=== PATIENT | female | born 1995 | race Caucasian/White ===

== ENCOUNTER → 2017-09-01 | Outpatient (CLI) | payer OTHER ==
[2017-09-01 17:56] LABS: BASO % 0.3 % (0.0-1.0); EOS # 0.1 10^3/uL (0.0-0.50); EOS % 0.7 % (0.0-3.0); HEMATOCRIT 40.7 % (36.0-47.0); HEMOGLOBIN 13.3 g/dl (12.0-16.0); IMMATURE GRANULOCYTE % 0.3 % (0-3.0); LYMPH # 3.1 10^3/uL (1.5-6.5); LYMPH % 40.9 % (24.0-44.0); MEAN CORPUSCULAR HEMOGLOBIN 29.3 pg (27.0-33.0); MEAN CORPUSCULAR HGB CONC 32.7 g/dl (32.0-36.5); MEAN CORPUSCULAR VOLUME 89.6 fl (80.0-96.0); MONO # 0.3 10^3/uL (0.0-0.8); MONO % 4.5 % (0.0-5.0); NEUTROPHILS % 53.3 % (36.0-66.0); PLATELET COUNT, AUTOMATED 261 10^3/uL (150-450); RED BLOOD COUNT 4.54 10^6/uL (4.00-5.40); RED CELL DISTRIBUTION WIDTH 13.1 % (11.5-14.5); WHITE BLOOD COUNT 7.5 10^3/uL (4.0-10.0)
[2017-09-01 17:57] LABS: INR 0.98; PROTHROMBIN TIME 13.1 SECONDS (12.4-14.5)
[2017-09-01 17:58] LABS: PARTIAL THROMBOPLASTIN TIME 36.5 SECONDS (26.8-37.9)
== END ==
LOC: M WUC 15:34
DX: R04.0 Epistaxis (principal); G93.2 Benign intracranial hypertension

== ENCOUNTER → 2017-10-10 | Outpatient (CLI) | payer OTHER | LOC: M PAIN 12:30 | DX: Z53.8 Procedure and treatment not carried out for other reasons (principal) ==

== ENCOUNTER 2018-04-23 13:17 | Emergency (ER) | payer OTHER ==
[2018-04-23] MEDS: diphenhydrAMINE INJ 50MG/ML VIAL (J1200) IV (15:42)
[2018-04-23] MEDS: NS 1,000 ML IV (15:42)
[2018-04-23] MEDS: METOCLOPRAMIDE INJ 10MG/2ML VIAL (J2765) IV (15:42)
[2018-04-23] MEDS: KETOROLAC 30 MG/ML VIAL (J1885) IV (15:43)
== END 2018-04-23 17:14 | disposition home or self-care (01) ==
LOC: M ED 13:17
DX: G97.1 Other reaction to spinal and lumbar puncture (principal); F41.9 Anxiety disorder, unspecified; Z79.899 Other long term (current) drug therapy
CPT/HCPCS: J1200

== ENCOUNTER → 2019-09-23 | Outpatient (CLI) | payer OTHER, MEDICAID ==
[~2019-09-23] MED LIST: ACET-683 PO; IBUP200C25 PO; SERT-138; SERT50TA29; TOPI50TA9
--- NOTE | 2019-09-26 03:32 | ECWPNPC ---
PATIENT NAME: LIO RENDON : 1995 GENDER: FEMALE VISIT DATE: 09/23/2019 DISCHARGE DATE: 09/23/19 1600 VISIT LOCKED DATE TIME: PHYSICIAN: NIR DURAN MD RESOURCE: NIR DURAN MD REASON FOR APPOINTMENT 1. PRE SEDATE HISTORY OF PRESENT ILLNESS HISTORY OF PRESENT ILLNESS: PAIN THE PATIENT DESCRIBES THE PAIN... 24 YEAR OLD FEMALE PATIENT WITH A HISTORY OF CHRONIC MIGRAINES AND PSEUDOTUMOR CEREBRI. THE PATIENT STATES HER INCREASING MIGRAINES AFFECT HER VISION OFTEN. THE PATIENT RECEIVED A SPINAL TAP A YEAR AGO, AND IS BEING REFERRED TO OUR CLINIC BY HER NEUROLOGIST, DR. KESSLER, FOR ANOTHER SPINAL TAP. PATIENT DENIES UNEXPLAINABLE WEIGHT LOSS, FEVER, CHILLS, NEW CHANGES ON HER URINARY OR BOWEL CONTROL, OR BLEEDING DISORDERS. FALL RISK SCREENING: SCREENING :NO FALLS REPORTED IN THE LAST YEAR CURRENT MEDICATIONS TAKING TOPAMAX 100 MG TABLET ORALLY BID TAKING EFFEXOR 50 MG TABLET 3 TABS ORALLY TAKING TYLENOL 325 MG TABLET 2 ORALLY PRN MEDICATION LIST REVIEWED AND RECONCILED WITH THE PATIENT PAST MEDICAL HISTORY MIGRAINE HYPERLIPIDEMIA HTN OBESITY ALLERGIES COCONUT: CRATCHY THROAT SURGICAL HISTORY TONSILS AND ADENOIDS 2013 [facility] SPINAL TAP 2018 FAMILY HISTORY FATHER: UNKNOWN MOTHER: ALIVE SIBLINGS: ALIVE SON(S): ALIVE DAUGHTER(S): ALIVE BROTHER HAS "ISSUES" WITH LIVER- DRINKING TOO MANY ENERGY DRINKS AUTISM SON AND ALBINOISM. SOCIAL HISTORY GENERAL: TOBACCO USE ARE YOU A:FORMER SMOKER HOW LONG HAS IT BEEN SINCE YOU LAST SMOKED?5-10 YEARS OTHERS AT HOME: CHILDREN, MOTHER. HOUSING: OWNS HOME. EDUCATION LEVEL OF EDUCATION:NOT FINISHED COLLEGE DIET: REGULAR. LANGUAGE LANGUAGES SPOKEN:KOREAN DOMESTIC VIOLENCE DO YOU FEEL SAFE IN YOUR ENVIRONMENT?YES EXERCISE: NO REGULAR EXERCISE, WALKS. LEARNING BARRIERS / SPECIAL NEEDS VISION IMPAIRED?YES WITH MIGRAINES EXPERIENCE BLURRED AND DOUBLE VISION PAIN CLINIC PFS, CLERGY, PUBLIC HEALTH REFERRALS HAS THE PATIENT BEEN EDUCATED REGARDING HIS/HER PLAN OF CARE?YES HAS THE PATIENT BEEN EDUCATED REGARDING PAIN, THE RISK FOR PAIN, THE IMPORTANCE OF EFFECTIVE PAIN MANAGEMENT, AND THE PAIN ASSESSMENT PROCESS?YES ADVANCE DIRECTIVE ADVANCE DIRECTIVE DISCUSSED WITH PATIENT:YES MARY CAGLE - MOTHER [phone] SHINTO SHINTO HINDU MARITAL STATUS: . 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 HOSPITALIZATION/MAJOR DIAGNOSTIC PROCEDURE NO HOSPITALIZATION HISTORY. REVIEW OF SYSTEMS REVIEWED BY: PROVIDER: NIR DURAN MD . CONSTITUTIONAL: ANY CHANGE IN YOUR MEDICAL CONDITION? NO . CHILLS NO . FEVER NO . INFECTION: DO YOU HAVE NEW INFECTIONS? NO . DO YOU HAVE HISTORY OF MRSA? NO . MUSCULOSKELETAL: ANY NEW PATTERNS OF PAIN OR NUMBNESS? NO . GASTROENTEROLOGY: ANY NEW CHANGE IN BOWEL CONTROL? NO . GENITOURINARY: ANY NEW CHANGE IN BLADDER CONTROL? NO . IS THERE A CHANCE YOU COULD BE ? NO . HEMATOLOGY/LYMPH: DO YOU TAKE ANY BLOOD THINNERS? (FOR EXAMPLE- COUMADIN, PLAVIX, AGGRENOX, PLATEL, PRADAXA, OR XARELTO) NO . WHEN WAS YOUR LAST DOSE? DATE: TIME: . NEUROLOGY: HAVE YOU FALLEN IN THE PAST 12 MONTHS? NO . ANY NEW EXTREMITY NUMBNESS OR WEAKNESS? NO . CARDIOLOGY: DO YOU HAVE A PACEMAKER OR DEFIBRILLATOR? NO . RESPIRATORY: HAVE YOU BEEN SICK IN THE PAST WEEK? NO . FEVER NO . FLU LIKE SYMPTOMS? NO . COUGH NO . INTEGUMENTARY: DO YOU HAVE ANY RASHES OR OPEN SORES? NO . ALLERGIC/IMMUNO: ARE YOU ALLERGIC TO IV DYE? NO . ANY NEW ALLERGIES? NO . PSYCHIATRIC: DO YOU HAVE THOUGHTS OF HURTING YOURSELF OR SOMEONE ELSE? NO . ARE YOU ABUSED, NEGLECTED, OR IN AN UNSAFE ENVIRONMENT? NO . ENDOCRINOLOGY: ARE YOU DIABETIC? NO . OTHER: DO YOU NEED ANY PRESCRIPTIONS? NO . IF YES, PLEASE LIST: ____ . ANY NEW PROBLEMS WITH YOUR MEDICATIONS? NO . WHEN DID YOU LAST EAT? ____ . WHEN DID YOU LAST DRINK? ____ . WHAT DID YOU LAST DRINK? ____ . NAME OF PERSON DRIVING YOU HOME? ____ . DO YOU HAVE ANY OTHER QUESTIONS OR CONCERNS NO . VITAL SIGNS WT 320.0 LBS, HT 5' 5", BMI 53.24 INDEX, BP 134/92 MM HG, HR 107 /MIN, RR 18 /MIN, TEMP 96.1 F, OXYGEN SAT % 98%, SAFE IN ENV? (Y/N) YES, NA INITIALS TL 1442, REVIEWED BY: KG. EXAMINATION GENERAL EXAMINATION: PATIENT IS ALERT O X 3 AND COOPERATIVE. LUNGS CLEAR, TO AUSCULTATION. HEART: NO MURMURS OR GALLOPS; FACIAL CRANIAL NERVES ARE GROSSLY NORMAL. GOOD SYMMETRY OF FACIAL MUSCLE MOVEMENT. NORMAL VISUAL WYATT. NOTES DONE ON 07/31/2019 FROM REFERRING NEUROLOGIST, DR. KESSLER, WERE REVIEWED. ASSESSMENTS PSEUDOTUMOR CEREBRI - G93.2 (PRIMARY) NEUROLOGICAL SYMPTOMS - R29.90 TREATMENT PSEUDOTUMOR CEREBRI CLINICAL NOTES: WE DISCUSSED SEVERAL ISSUES WITH MS. RENDON' CASE. THE PATIENT WILL COME IN FOR A SPINAL TAP IN THE NEXT COUPLE OF WEEKS. WE DISCUSSED THE BENEFITS AND RISKS OF THE PROCEDURE AND THE PATIENT WOULD LIKE TO PROCEED. INSTRUCTIONS WERE GIVEN, QUESTIONS WERE ANSWERED, PATIENT REPORTS UNDERSTANDING AND AGREES WITH THE PLAN. I, TIGRE LLANES, DOCUMENTED THE ABOVE INFORMATION ACTING A SCRIBE FOR DR. DURAN. I HAVE REVIEWED THE ABOVE DOCUMENT, WRITTEN BY TIGRE CLEMENT AND I VERIFY THAT IT IS ACCURATE. . PROCEDURE CODES FA211 ESTABILISHED PATIENT [facility] FACILITY CHARGE G8427 CURRENT MEDS W/DOSAGES DOCUMENTED G8730 PAIN ASSESS POS TOOL F/U PLAN DOC DISPOSITION & COMMUNICATION FOLLOW UP REASON: SPINAL TAP WITH IV SEDATE ELECTRONICALLY SIGNED BY NIR DURAN MD, MD ON 09/25/2019 AT 05:13 PM EDT DISCLAIMER : THIS IS A VISIT SUMMARY EXTRACTED FROM THE [employer] CHART. IT IS NOT A COPY OF THE [employer] PROGRESS NOTE. MTDD
== END ==
LOC: M PAIN 14:45
PROVIDERS: ATTEND Anesthesiology
DX: G93.2 Benign intracranial hypertension (principal); R29.90 Unspecified symptoms and signs involving the nervous system; Z79.899 Other long term (current) drug therapy; Z87.891 Personal history of nicotine dependence; Z91.018 Allergy to other foods

== ENCOUNTER → 2019-12-12 | Outpatient (CLI) | payer OTHER, MEDICAID ==
--- NOTE | 2019-12-19 02:04 | ECWPNPC ---
PATIENT NAME: LIO RENDON : 1995 GENDER: FEMALE VISIT DATE: 12/12/2019 DISCHARGE DATE: 12/12/19 1557 VISIT LOCKED DATE TIME: PHYSICIAN: NIR DURAN MD RESOURCE: NIR DURAN MD REASON FOR APPOINTMENT 1. SPINAL PRE SEDATE HISTORY OF PRESENT ILLNESS GENERAL: 24 YEAR OLD FEMALE PATIENT WITH A HISTORY OF CHRONIC MIGRAINES AND VISION PROBLEMS. THE PATIENT DESCRIBES HER PAIN ACHING, INTERMITTENT, OTHER "DULL PAIN" ABOVE RIGHT EYE. THE PATIENT WAS SEEN BY HER NEUROLOGIST AND REFERRED TO US BY DR. KESSLER FOR A SPINAL TAP TO RULE OUT PSEUDOTUMOR CEREBRI. THE PATIENT HAD A SPINAL TAP DONE IN 2018 AT [facility]. , THE PATIENT DENIES UNEXPLAINED WEIGHT LOSS, FEVER, CHILLS, NEW CHANGES IN HER URINARY OR BOWEL CONTROL. FALL RISK SCREENING: SCREENING :NO FALLS REPORTED IN THE LAST YEAR PAIN SCREENING: PATIENT HAS A COMPLAINT OF ACUTE OR CHRONIC PAIN :YES LOCATION OF PAIN:HEAD MINOR HEADACHE INTENSITY OF PAIN (SCALE OF 1 TO 10):2 WHAT DOES YOUR PAIN FEEL LIKE:ACHING, INTERMITTENT, OTHER "DULLL PAIN" ABOVE RIGHT EYE DURATION:STEADY, MAINLY DURING THE DAY, INTERMITTENT PAIN IS INCREASED BY: BIGHT LIGHT, SMELLS PAIN IS DECREASED BY: REST/SLEEP, TYLENOL NURSING NOTE: -. PAIN CENTER INTAKE QUESTIONS: DO YOU HAVE A HISTORY OF MRSA? :NO DO YOU TAKE A BLOOD THINNERS? :NO DO YOU HAVE ANY BLEEDING DISORDERS? :NO ANY NEW NUMBNESS OR WEAKNESS IN YOUR LEGS OR ARMS? :NO ANY PACEMAKER,DEFIBRILLATOR, OR DORSAL COLUMN STIMULATOR? :NO DO YOU HAVE ANY RASHES OR OPEN SORES? :YES SCRATCH 5TH DIGIT RIGHT HAND ARE YOU ALLERGIC TO IV DYE? :NO ARE YOU DIABETIC? :NO ANY NEW PROBLEMS WITH YOUR MEDICATIONS? :NO HAVE YOU RECEIVED A VACCINE IN THE PAST 30 DAYS? :NO DO YOU PLAN TO RECEIVE A VACCINE IN THE NEXT 21 DAYS? :NO DO YOU NEED ANY PRESCRIPTION? :NO DO YOU TAKE ANY IMMUNOSUPPRESSIVE MEDICATIONS? :NO CURRENT MEDICATIONS TAKING TOPAMAX 100 MG TABLET ORALLY BID TAKING EFFEXOR 50 MG TABLET 3 TABS ORALLY DAILY TAKING TYLENOL 325 MG TABLET 2 ORALLY PRN MEDICATION LIST REVIEWED AND RECONCILED WITH THE PATIENT PAST MEDICAL HISTORY MIGRAINE HYPERLIPIDEMIA HTN OBESITY PSEUDOTUMOR CEREBRI ALLERGIES COCONUT: SCRATCHY THROAT - ALLERGY SURGICAL HISTORY TONSILS AND ADENOIDS 2012 [facility] SPINAL TAP 2018 FAMILY HISTORY FATHER: UNKNOWN MOTHER: ALIVE SIBLINGS: ALIVE SON(S): ALIVE DAUGHTER(S): ALIVE BROTHER HAS "ISSUES" WITH LIVER- DRINKING TOO MANY ENERGY DRINKS AUTISM SON AND ALBINOISM. SOCIAL HISTORY GENERAL: TOBACCO USE ARE YOU A:FORMER SMOKER HOW LONG HAS IT BEEN SINCE YOU LAST SMOKED?5-10 YEARS LATEX QUESTIONNAIRE LATEX ALLERGY : HAVE YOU EVER DEVELOPED ANY TYPE OF REACTION AFTER HANDLING LATEX PRODUCTS SUCH RUBBER GLOVES, CONDOMS, DIAPHRAGMS, BALLOONS, SOCKS, OR UNDERWEAR?NO LATEX ALLERGY : HAVE YOU EVER DEVELOPED ANY TYPE OF REACTION DURING OR AFTER DENTAL APPOINTMENT, VAGINAL/RECTAL EXAMINATION, SURGICAL PROCEDURE, OR ANY OTHER EXPOSURE?NO LATEX RISK : HAVE YOU EVER HAD ANY DIFFICULTY BREATHING OR HIVES AFTER EATING OR HANDLING ANY FRUITS, OR VEGETABLES; SUCH KIWI, BANANAS, STONE FRUITS, OR CHESTNUTSNO LATEX RISK : DO YOU HAVE A PREVIOUS PERSONAL HISTORY OF MORE THAN NINE SURGERIES, SPINA BIFIDA, OR REPEATED CATHERIZATIONS? NO LATEX RISK : ARE YOU FREQUENTLY EXPOSED TO LATEX PRODUCTS IN YOUR OCCUPATION?NO DATE ASKED : 12/12/2019 ALCOHOL SCREENING DID YOU HAVE A DRINK CONTAINING ALCOHOL IN THE PAST YEAR?NO POINTS0 INTERPRETATIONNEGATIVE RECREATIONAL DRUG USE DRUG USE?NO HINDU HINDU BAPTIST LANGUAGE LANGUAGES SPOKEN:SYRIAN EDUCATION LEVEL OF EDUCATION:NOT FINISHED COLLEGE LEARNING BARRIERS / SPECIAL NEEDS BARRIERS TO LEARNING?YES COMMENTS DYSLEXIA HEARING IMPAIRED?NO VISION IMPAIRED?YES WITH MIGRAINES EXPERIENCE BLURRED AND DOUBLE VISION :CORRECTIVE LENSES COGNITIVELY IMPAIRED?NO READINESS TO LEARN?YES LEARNING PREFERENCES?YES :DEMONSTRATION/VERBAL INSTRUCTION LEARNING CAPABILITIES PRESENT?YES EMOTIONAL BARRIERS?NO SPECIAL DEVICES?NO FAITH DOCTOR NEEDED?NO DOMESTIC VIOLENCE DO YOU FEEL SAFE IN YOUR ENVIRONMENT?YES 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 EXERCISE: NO REGULAR EXERCISE, WALKS. MARITAL STATUS: . OTHERS AT HOME: CHILDREN, MOTHER. PAIN CLINIC PFS, CLERGY, PUBLIC HEALTH REFERRALS HAS THE PATIENT BEEN EDUCATED REGARDING HIS/HER PLAN OF CARE?YES HAS THE PATIENT BEEN EDUCATED REGARDING PAIN, THE RISK FOR PAIN, THE IMPORTANCE OF EFFECTIVE PAIN MANAGEMENT, AND THE PAIN ASSESSMENT PROCESS?YES HOUSING: OWNS HOME. ADVANCE DIRECTIVE ADVANCE DIRECTIVE DISCUSSED WITH PATIENT:YES MARY CAGLE - MOTHER [phone] HOSPITALIZATION/MAJOR DIAGNOSTIC PROCEDURE CHILD X2 REVIEW OF SYSTEMS REVIEWED BY: PROVIDER: NIR DURAN MD . CONSTITUTIONAL: ANY RECENT FEVER OR ILLNESS NO . ANY CHANGE IN YOUR MEDICAL CONDITION? NO . CHILLS NO . MUSCULOSKELETAL: ANY NEW PATTERNS OF PAIN OR NUMBNESS? NO . SYSTEMIC LUPUS NO . LYME DISEASE NO . GASTROENTEROLOGY: ANY NEW CHANGE IN BOWEL CONTROL? NO . BARRETTS ESOPHAGUS NO . CIRRHOSIS NO . HEPATITIS NO . LIVER FAILURE NO . NO ABDOMINAL PAIN. ACID REFLUX NO . NO ANOREXIA. NO CONSTIPATION. NO CRAMPING. NO NAUSEA. NO RECTAL BLEEDING. NO VOMITING. UNEXPLAINED WEIGHT LOSS NO . GENITOURINARY: ANY NEW CHANGE IN BLADDER CONTROL? NO . IS THERE A CHANCE YOU COULD BE ? NO . NEUROLOGY: HEAD INJURY NO . NEW ONSET DIZZINESS NO . HEADACHE NO . STROKES NO . VERTIGO NO . CARDIOLOGY: ANGINA NO . HEART ATTACK NO . HEART SURGERY NO . CONGESTIVE HEART FAILURE/FLUID OVERLOAD NO . CHEST PAIN NO . HIGH BLOOD PRESSURE NO . IRREGULAR HEART BEAT NO . RESPIRATORY: SLEEP APNEA NO . ASTHMA NO . SHORTNESS OF BREATH ON EXERTION NO . COUGH NO . WHEEZING NO . ENDOCRINOLOGY: ADRENAL GLAND DISORDER NO . THYROID DISORDER NO . VITAL SIGNS WT 324.2 LBS, HT 5' 5", BMI 53.94 INDEX, BP 132/88 MM HG, HR 83 /MIN, RR 16 /MIN, TEMP 97.1 F, OXYGEN SAT % 98%, SAFE IN ENV? (Y/N) Y, NA INITIALS TL 1413, REVIEWED BY: BERTRAND. EXAMINATION GENERAL: PATIENT IS ALERT O X 3 AND COOPERATIVE. LUNGS CLEAR, TO AUSCULTATION. HEART: NO MURMURS OR GALLOPS; FACIAL CRANIAL NERVES ARE GROSSLY NORMAL. GOOD SYMMETRY OF FACIAL MUSCLE MOVEMENT. NORMAL VISUAL WYATT. REFERRING PHYSICIAN NOTES FROM DR. KESSLER IS PRESENT IN PATIENT'S CHART AND WAS REVIEWED. ASSESSMENTS NEUROLOGICAL SYMPTOMS - R29.90 (PRIMARY) R/O PSEUDOTUMOR CEREBRI. TREATMENT NEUROLOGICAL SYMPTOMS CLINICAL NOTES: WE DISCUSSED SEVERAL ISSUES WITH MS. RENDON' CASE. THE PATIENT IS HERE TODAY FOR A SPINAL TAP CONSULT AND WILL HAVE IT DONE NEXT WEEK. WE DISCUSSED THE BENEFITS, RISKS, AND ALTERNATIVES OF THE INJECTION AND THE PATIENT WOULD LIKE TO PROCEED. INSTRUCTIONS WERE GIVEN, QUESTIONS WERE ANSWERED, PATIENT REPORTS UNDERSTANDING AND AGREES WITH THE PLAN. I, TIGRE LLANSE, DOCUMENTED THE ABOVE INFORMATION ACTING A SCRIBE FOR DR. DURAN. I HAVE REVIEWED THE ABOVE DOCUMENT, WRITTEN BY TIGRE HEMRIC SCRIBE AND I VERIFY THAT IT IS ACCURATE. PROCEDURE CODES FA211 ESTABILISHED PATIENT [facility] FACILITY CHARGE G8427 CURRENT MEDS W/DOSAGES DOCUMENTED G8730 PAIN ASSESS POS TOOL F/U PLAN DOC DISPOSITION & COMMUNICATION FOLLOW UP 1 WEEK ELECTRONICALLY SIGNED BY NIR DURAN MD, ON 12/18/2019 AT 02:02 PM EDT DISCLAIMER : THIS IS A VISIT SUMMARY EXTRACTED FROM THE [employer] CHART. IT IS NOT A COPY OF THE [employer] PROGRESS NOTE. ALESIA
== END ==
LOC: M PAIN 14:00
PROVIDERS: ATTEND Anesthesiology
DX: R29.90 Unspecified symptoms and signs involving the nervous system

== ENCOUNTER → 2019-12-13 | Outpatient (CLI) | payer OTHER, MEDICAID | LOC: M LABSMTC 10:57 | PROVIDERS: ATTEND Anesthesiology | DX: Z03.818 Encounter for observation for suspected exposure to other biological agents ruled out (principal); Z11.59 Encounter for screening for other viral diseases | CPT/HCPCS: C9803; U0003 ==

== ENCOUNTER → 2019-12-16 | Outpatient (CLI) | payer OTHER, MEDICAID ==
[~2019-12-16] MED LIST changes: +LIDOCAINE 1% SDV 30ML VIAL As Ordered ONE; +MIDAZOLAM INJ 2MG/2ML VIAL (J2250 PER 1MG) As Ordered ONE; +fentaNYL 100 MCG/2 ML INJECTION (J3010) As Ordered ONE
[2019-12-16 13:29] LABS: APPEARANCE, CSF CLEAR (CLEAR); COLOR, CSF COLORLESS (COLORLESS); CSF TUBE# CELL CNT TUBE 3
[2019-12-16 13:38] LABS: CSF TUBE# GLU TUBE 1; CSF TUBE# TP TUBE 1; GLUCOSE CSF 55 MG/DL (40-75); TOTAL PROTEIN,CSF 35 MG/DL (15-45)
--- NOTE | 2019-12-17 01:01 | ECWPNPC ---
PATIENT NAME: LIO RENDON : 1995 GENDER: FEMALE VISIT DATE: 12/16/2019 DISCHARGE DATE: 12/16/19 1550 VISIT LOCKED DATE TIME: PHYSICIAN: NIR DURAN MD RESOURCE: NIR DURAN MD REASON FOR APPOINTMENT 1. SPINAL TAP HISTORY OF PRESENT ILLNESS GENERAL: -. FALL RISK SCREENING: SCREENING :NO FALLS REPORTED IN THE LAST YEAR PAIN SCREENING: PATIENT HAS A COMPLAINT OF ACUTE OR CHRONIC PAIN :YES 12/16/2019 LOCATION OF PAIN:HEAD INTENSITY OF PAIN (SCALE OF 1 TO 10):1 WHAT DOES YOUR PAIN FEEL LIKE:ACHING, INTERMITTENT NURSING NOTE: -. PAIN CENTER INTAKE QUESTIONS: DO YOU HAVE A HISTORY OF MRSA? :NO DO YOU TAKE A BLOOD THINNERS? :NO DO YOU HAVE ANY BLEEDING DISORDERS? :NO ANY NEW NUMBNESS OR WEAKNESS IN YOUR LEGS OR ARMS? :NO ANY PACEMAKER,DEFIBRILLATOR, OR DORSAL COLUMN STIMULATOR? :NO DO YOU HAVE ANY RASHES OR OPEN SORES? :YES CAT SCRATCH ON LEFT HAND ARE YOU ALLERGIC TO IV DYE? :NO ARE YOU DIABETIC? :NO ANY NEW PROBLEMS WITH YOUR MEDICATIONS? :NO HAVE YOU RECEIVED A VACCINE IN THE PAST 30 DAYS? :NO DO YOU PLAN TO RECEIVE A VACCINE IN THE NEXT 21 DAYS? :NO ANY HISTORY OF SEIZURES? :NO ANY HISTORY OF CARDIAC ISSUES OR EVENTS? :NO DO YOU HAVE SLEEP APNEA? :NO ANY RECENT HEAD INJURY? :NO DO YOU HAVE ANY NEW INFECTIONS? :NO WHEN DID YOU LAST EAT? : -12/14 9P WHEN DID YOU LAST DRINK? : -12/15 9AM WHAT DID YOU LAST DRINK? : -WATER NAME OF PERSON DRIVING YOU HOME? : -MOTHER - MARY DO YOU HAVE ANY OTHER QUESTIONS OR CONCERNS? : - CURRENT MEDICATIONS TAKING TOPAMAX 100 MG TABLET ORALLY BID, NOTES: 12/15 9A TAKING EFFEXOR 50 MG TABLET 3 TABS ORALLY DAILY, NOTES: 12/15 9A TAKING TYLENOL 325 MG TABLET 2 ORALLY PRN, NOTES: 3 WEEKS PAST MEDICAL HISTORY MIGRAINE HYPERLIPIDEMIA HTN OBESITY PSEUDOTUMOR CEREBRI ALLERGIES COCONUT: SCRATCHY THROAT - ALLERGY SURGICAL HISTORY TONSILS AND ADENOIDS 2012 [facility] SPINAL TAP 2018 FAMILY HISTORY FATHER: UNKNOWN MOTHER: ALIVE SIBLINGS: ALIVE SON(S): ALIVE DAUGHTER(S): ALIVE BROTHER HAS "ISSUES" WITH LIVER- DRINKING TOO MANY ENERGY DRINKS AUTISM SON AND ALBINOISM. SOCIAL HISTORY GENERAL: TOBACCO USE ARE YOU A:FORMER SMOKER HOW LONG HAS IT BEEN SINCE YOU LAST SMOKED?5-10 YEARS LATEX QUESTIONNAIRE LATEX ALLERGY : HAVE YOU EVER DEVELOPED ANY TYPE OF REACTION AFTER HANDLING LATEX PRODUCTS SUCH RUBBER GLOVES, CONDOMS, DIAPHRAGMS, BALLOONS, SOCKS, OR UNDERWEAR?NO LATEX ALLERGY : HAVE YOU EVER DEVELOPED ANY TYPE OF REACTION DURING OR AFTER DENTAL APPOINTMENT, VAGINAL/RECTAL EXAMINATION, SURGICAL PROCEDURE, OR ANY OTHER EXPOSURE?NO DATE ASKED : 12/12/2019 LATEX RISK : HAVE YOU EVER HAD ANY DIFFICULTY BREATHING OR HIVES AFTER EATING OR HANDLING ANY FRUITS, OR VEGETABLES; SUCH KIWI, BANANAS, STONE FRUITS, OR CHESTNUTSNO LATEX RISK : DO YOU HAVE A PREVIOUS PERSONAL HISTORY OF MORE THAN NINE SURGERIES, SPINA BIFIDA, OR REPEATED CATHERIZATIONS? NO LATEX RISK : ARE YOU FREQUENTLY EXPOSED TO LATEX PRODUCTS IN YOUR OCCUPATION?NO ALCOHOL SCREENING DID YOU HAVE A DRINK CONTAINING ALCOHOL IN THE PAST YEAR?NO POINTS0 INTERPRETATIONNEGATIVE RECREATIONAL DRUG USE DRUG USE?NO CONFUCIANIST CONFUCIANIST RELIGIOUS LANGUAGE LANGUAGES SPOKEN:LIBYAN EDUCATION LEVEL OF EDUCATION:NOT FINISHED COLLEGE LEARNING BARRIERS / SPECIAL NEEDS BARRIERS TO LEARNING?YES COMMENTS DYSLEXIA HEARING IMPAIRED?NO VISION IMPAIRED?YES WITH MIGRAINES EXPERIENCE BLURRED AND DOUBLE VISION COGNITIVELY IMPAIRED?NO :CORRECTIVE LENSES READINESS TO LEARN?YES LEARNING PREFERENCES?YES :DEMONSTRATION/VERBAL INSTRUCTION LEARNING CAPABILITIES PRESENT?YES EMOTIONAL BARRIERS?NO SPECIAL DEVICES?NO STACKER TENDER NEEDED?NO DOMESTIC VIOLENCE DO YOU FEEL SAFE IN YOUR ENVIRONMENT?YES 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 EXERCISE: NO REGULAR EXERCISE, WALKS. MARITAL STATUS: . OTHERS AT HOME: CHILDREN, MOTHER. PAIN CLINIC PFS, CLERGY, PUBLIC HEALTH REFERRALS HAS THE PATIENT BEEN EDUCATED REGARDING HIS/HER PLAN OF CARE?YES HAS THE PATIENT BEEN EDUCATED REGARDING PAIN, THE RISK FOR PAIN, THE IMPORTANCE OF EFFECTIVE PAIN MANAGEMENT, AND THE PAIN ASSESSMENT PROCESS?YES HOUSING: OWNS HOME. ADVANCE DIRECTIVE ADVANCE DIRECTIVE DISCUSSED WITH PATIENT:YES MARY CAGLE - MOTHER [phone] HOSPITALIZATION/MAJOR DIAGNOSTIC PROCEDURE CHILD X2 VITAL SIGNS WT 326.6 LBS, HT 5' 5", BMI 54.34 INDEX, BP 140/91 MM HG, HR 102 /MIN, RR 18 /MIN, TEMP 97.0 F, OXYGEN SAT % 98%, SAFE IN ENV? (Y/N) Y, NA INITIALS AW 1051, REVIEWED BY: ANY. EXAMINATION GENERAL EXAMINATION: THE PATIENT IS ALERT, ORIENTED TIMES THREE AND COOPERATIVE. HEART SHOWS REGULAR RHYTHM, NO MURMURS AND NO GALLOPS. LUNGS ARE CLEAR TO AUSCULTATION. ASSESSMENTS PSEUDOTUMOR CEREBRI - G93.2 (PRIMARY) NEUROLOGICAL SYMPTOMS - R29.90 PROCEDURES PAIN NURSING RECORD PRE-PROCEDURE IV SITE LEFT ANTECUBITAL, IV STARTED # 22, IV STARTED BY: Dixie MENEZES RN, IV ATTEMPTS 1 PROCEDURE IN ROOM 1151, PHYSICIAN IN ROOM 1155, START 1209, FINISH 1225, PHYSICIAN OUT OF ROOM 1238, OUT OF ROOM 1245, STEROID N/A, O2 NC 2 LPM, ECG NORMAL SINUS, PATIENT SHIELDED NO, SAFETY STRAP NO, PREP BETADINE MD DURAN, IV INFUSED LACTATED RINGERS 300CC, DRESSING TEGADERM MD DURAN LOC: ZANA MENEZES RN 12/16/2019 11:54:38 AM > , 1. ALERT, ORIENTED ZANA MENEZES RN 12/16/2019 12:14:42 PM > , 2. DROWSY, RESPONDS APPROPRIATELY , ZANA MENEZES RN 12/16/2019 12:47:32 PM > , 1. ALERT, ORIENTED RESP: ZNAA MENEZES RN 12/16/2019 11:54:51 AM > , 1. REGULAR, NO DYSPNEA COLOR: ZANA MENEZES RN 12/16/2019 11:54:55 AM > , 1. PINK SKIN: ZANA MENEZES RN 12/16/2019 11:54:59 AM > , 1. WARM, DRY POSITION: ZANA MENEZES RN 12/16/2019 11:55:24 AM > , 3. LATERAL VITALS: ZANA MENEZES RN 12/16/2019 11:55:35 AM > 142/82 80, 18, 100% ZANA MENEZES RN 12/16/2019 12:00:05 PM > 146/81, 80, 16, 100% VERSED 1MG IV GIVEN BY ZANA GORDON RN, RN 12/16/2019 12:03:25 PM > FENTANYL 25MCG IV GIVEN BY ZANA LOVING RN, RN 12/16/2019 12:05:57 PM > 145/72, 81, 18, 100% ZANA MENEZES RN 12/16/2019 12:06:31 PM > FENTANYL 25MCG IV GIVEN BY ZANA LOVING RN, RN 12/16/2019 12:08:36 PM > VERSED 1MG IV BY ZANA LOVING RN, RN 12/16/2019 12:10:58 PM > 139/74, 76, 16, 100% ZANA MENEZES RN 12/16/2019 12:15:38 PM > 138/76, 80, 16, 100% , ZANA MENEZES RN 12/16/2019 12:20:18 PM > 174/76, 69, 16, 100% , ZANA MENEZES RN 12/16/2019 12:25:03 PM > 158/90, 75, 18, 100% , ZANA MENEZES RN 12/16/2019 12:30:44 PM > 150/82, 76, 16, 100% , ZANA MENEZES RN 12/16/2019 12:47:45 PM > 124/75, 83, 16, 100% DISCHARGE: POST PAIN 0/10, DRESSING SITE DRY AND INTACT, IV DISCONTINUED, SITE CLEAR, CATHETER INTACT, GAIT STEADY, TEACHING COMPLETED, PATIENT ACKNOWLEDGES UNDERSTANDING YES, PATIENT DISCHARGED AT 1250 SPINAL TAPPATIENT INTERVIEWED, EXAMINATIONS AND TREATMENT QUESTIONNAIRES REVIEWED.PROCEDURE, RISKS AND BENEFITS DISCUSSED WITH PATIENT.PATIENT POSITIONED: LEFT LATERALTREATMENT AREA PREPPED WITH BETADINE IN STERILE FASHION.LOCAL INFILTRATE 1% LIDOCAINE AT THE L4-L5 INTERSPACE.22-GAUGE QUINCKE NEEDLE ADVANCED UNTIL THE DURA WAS FELT AND CSF IS FREE-FLOWING.BLOOD RETURN ENCOUNTERED: NOPARASTHESIA ENCOUNTERED: NOOPENING PRESSURE WAS MEASURED AT 27 CM OF WATER. 4.0 VIALS OF 3.0 CC OF CSF WAS COLLECTED.CSF DESCRIPTION: CLEARCSF SENT FOR STUDIES ORDERED BY REFERRING PHYSICIAN.VITAL SIGNS: STABLECOMPLICATIONS: NONE.VERSED 2 MGFENTANYL 50 MCGLACTATED RINGER'S 300 MLOXYGEN 2 LITERSIV SEDATION START TIME: 12:00IV SEDATION END TIME: 12:30TOTAL [id number] TIME: 30MINUTESDISCHARGE WHEN THE PATIENT MEETS CRITERIA. THE PATIENT WILL FOLLOW UP WITH DR. GILBERT AND CALL US NEEDED. PROCEDURE CODES 48383 LUMBAR PUNCTURE 28758 MOD SED SAME PHYS/QHP 5/>YRS 03093 MOD SED SAME PHYS/QHP EA DISPOSITION & COMMUNICATION FOLLOW UP F/UP WITH NEUROLOGIST (REASON: POST SPINAL TAP) ELECTRONICALLY SIGNED BY NIR DURAN MD, MD ON 12/16/2019 AT 01:52 PM EDT DISCLAIMER : THIS IS A VISIT SUMMARY EXTRACTED FROM THE [employer] CHART. IT IS NOT A COPY OF THE [employer] PROGRESS NOTE. ALESIA
== END ==
LOC: M PAIN 10:45
PROVIDERS: ATTEND Anesthesiology
DX: G93.2 Benign intracranial hypertension (principal); R29.90 Unspecified symptoms and signs involving the nervous system; Z79.899 Other long term (current) drug therapy; Z87.891 Personal history of nicotine dependence; Z91.018 Allergy to other foods
CPT/HCPCS: 36415; 62270; 82784; 82945; 83916; 84157; 87070; 87102; 87205; 87252; 87483; 88108; 88313; 89050; 99152; 99153; J2250; J3010

== ENCOUNTER → 2024-01-31 | Outpatient (CLI) | payer OTHER, MEDICAID ==
[~2024-01-31] MED LIST changes: -LIDOCAINE 1% SDV 30ML VIAL As Ordered ONE; -MIDAZOLAM INJ 2MG/2ML VIAL (J2250 PER 1MG) As Ordered ONE; +TOPI-21; -TOPI50TA9; -fentaNYL 100 MCG/2 ML INJECTION (J3010) As Ordered ONE
== END ==
LOC: M WUC 12:31
PROVIDERS: ATTEND Nurse Practitioner Family
DX: M25.572 Pain in left ankle and joints of left foot (principal)